=== PATIENT | female | born 1985 | race American Indian/Alaskan Native ===

== ENCOUNTER 2016-07-03 19:45 | Emergency (ER) | payer MEDICAID ==
[2016-07-03 20:12] VITALS: BP 128/78
[2016-07-03 21:31] LABS: Basophils % (Auto) 0.9 % (0.0-1.8); Eosinophils % (Auto) 7.9 % (0.0-4.3); Hematocrit 38.5 % (30.3-42.9); Hemoglobin 12.6 gm/dl (10.1-14.3); Mean Corpuscular HGB Conc 33 % (30-34); Mean Corpuscular Hemoglobin 27 pg (28-32); Mean Corpuscular Volume 83 fl (79-97); Platelet Count 226 K/mm3 (140-440); Red Blood Count 4.61 M/mm3 (3.65-5.03); Red Cell Distribution Width 16.2 % (13.2-15.2); White Blood Count 7.5 K/mm3 (4.5-11.0)
[2016-07-03 21:44] LABS: Anion Gap 19 mmol/L; BUN/Creatinine Ratio 16.66; Blood Urea Nitrogen 15 mg/dL (7-17); Calcium 8.9 mg/dL (8.4-10.2); Carbon Dioxide 23 mmol/L (22-30); Chloride 98.6 mmol/L (98-107); Glucose 91 mg/dL (65-100); Sodium 137 mmol/L (137-145)
--- NOTE | 2016-07-05 15:58 | ED Elopement Review ---
ED Pt Elopement review - Results review Lab results: Laboratory Tests 07/03/16 07/03/16 20:58 20:58 WBC 7.5 RBC 4.61 Hgb 12.6 Hct 38.5 MCV 83 MCH 27 L MCHC 33 RDW 16.2 H Plt Count 226 Lymph % (Auto) 24.9 Weld % (Auto) 11.1 H Eos % (Auto) 7.9 H Baso % (Auto) 0.9 Lymph # 1.9 Weld # 0.8 Eos # 0.6 H Baso # 0.1 Seg Neutrophils % 55.2 Seg Neutrophils # 4.1 Sodium 137 Potassium 4.0 Chloride 98.6 Carbon Dioxide 23 Anion Gap 19 BUN 15 Creatinine 0.9 Estimated GFR > 60 BUN/Creatinine Ratio 16.66 Glucose 91 Calcium 8.9 Troponin T < 0.010 - Call Back decision Pt Call Back Decision: No action required
== END 2016-07-03 22:06 | disposition left against medical advice (07) ==
LOC: ED 19:45
DX: R07.9 Chest pain, unspecified (principal); Z53.21 Procedure and treatment not carried out due to patient leaving prior to being seen by health care provider
CPT/HCPCS: 36415; 80048; 84484; 85025; 93005; 93010

== ENCOUNTER 2017-12-03 21:34 | Emergency (ER) | payer MEDICAID ==
[2017-12-03 22:47] LABS: Basophils # (Auto) 0.1 K/mm3 (0.0-0.1); Basophils % (Auto) 0.9 % (0.0-1.8); Eosinophils # (Auto) 0.3 K/mm3 (0.0-0.4); Eosinophils % (Auto) 3.7 % (0.0-4.3); Hematocrit 33.6 % (30.3-42.9); Hemoglobin 11.2 gm/dl (10.1-14.3); Lymphocytes # (Auto) 1.5 K/mm3 (1.2-5.4); Lymphocytes % (Auto) 16.9 % (13.4-35.0); Mean Corpuscular HGB Conc 33 % (30-34); Mean Corpuscular Hemoglobin 28 pg (28-32); Mean Corpuscular Volume 85 fl (79-97); Monocytes # (Auto) 0.7 K/mm3 (0.0-0.8); Monocytes % (Auto) 7.1 % (0.0-7.3); Platelet Count 254 K/mm3 (140-440); Red Blood Count 3.97 M/mm3 (3.65-5.03); Red Cell Distribution Width 17.5 % (13.2-15.2)
[2017-12-03 22:58] LABS: BUN/Creatinine Ratio 19; Blood Urea Nitrogen 15 mg/dL (7-17); Calcium 9.1 mg/dL (8.4-10.2); Hemolysis Index 3
[2017-12-03 23:07] LABS: Bilirubin,Urine NEG (Negative); Blood,Urine NEG (Negative); Color,Urine Straw (Yellow); Protein,Urine <15 mg/dL mg/dL (Negative); RBC,Urine < 1.0 /HPF (0.0-6.0); Urobilinogen,Urine < 2.0 mg/dL (<2.0); WBC,Urine < 1.0 /HPF (0.0-6.0)
--- NOTE | 2017-12-03 23:29 | XRay Report ---
FINAL REPORT PROCEDURE: XR CHEST 1V AP TECHNIQUE: Chest radiograph anteroposterior view. CPT 74550 HISTORY: [facility] Respiratory Infection COMPARISON: No prior studies are available for comparison. FINDINGS: Heart: Upper normal size.. Mediastinum/Vessels: Normal. Lungs/Pleural space: Clear.. Bony thorax: No acute osseous abnormality. Life support devices: None. IMPRESSION: Heart size upper normal. No acute abnormalities are suspected..
[2017-12-04 03:19] VITALS: BP 125/77
[2017-12-04] MEDS ORDERED: DUONEB *Not for PRN Use IH ONE (04:40)
[2017-12-04] MEDS ORDERED: DELTASONE PO ONE (04:40)
--- NOTE | 2017-12-04 04:43 | Emergency Department Report ---
ED Asthma HPI - General Chief Complaint: Upper Respiratory Infection Stated Complaint: ASTHMA Time Seen by Provider: 12/04/17 03:34 Source: patient Mode of arrival: Ambulatory Limitations: No Limitations - History of Present Illness MD Complaint: "asthma attack", shortness of breath, wheezing -: Gradual, days(s) (several) Asthma History: history of prior ED visit Severity: mild Context: allergen exposure, smoke exposure, other (heat ) Associated Symptoms: productive cough, chest pain Treatments Prior to Arrival: inhaled bronchodilator - Related Data Previous Rx's Medication Instructions Recorded Last Taken Type Vits96/Iron Fum/Folic 1 each PO QDAY #30 tablet 03/08/14 Unknown Rx [ Tablet] Gentamicin 0.3% Ophth Oint 1 applicatio OD Q4H #1 tube 08/16/15 Unknown Rx Ibuprofen [Motrin 600 MG tab] 600 mg PO Q8H PRN #30 tablet 08/16/15 Unknown Rx Ibuprofen [Motrin] 800 mg PO Q8HR PRN #20 tablet 03/12/16 Unknown Rx Prednisone [predniSONE 10 mg 10 mg PO .TAPER #1 tab.ds.pk 12/04/17 Unknown Rx (6-Day Pack, 21 Tabs)] Allergies Allergy/AdvReac Type Severity Reaction Status Date / Time No Known Allergies Allergy Verified 08/16/15 12:38 ED Review of Systems ROS: Stated complaint: ASTHMA Other details as noted in HPI Comment: All other systems reviewed and negative Constitutional: denies: fever, malaise Respiratory: cough Cardiovascular: chest pain ED Past Medical Hx - Past Medical History Hx Asthma: Yes - Surgical History Additional Surgical History: tubal ligation - Social History Smoking Status: Current Every Day Smoker Substance Use Type: None - Medications Home Medications: Home Medications Medication Instructions Recorded Confirmed Last Taken Type Vits96/Iron Fum/Folic 1 each PO QDAY #30 tablet 03/08/14 Unknown Rx [ Tablet] Gentamicin 0.3% Ophth Oint 1 applicatio OD Q4H #1 tube 08/16/15 Unknown Rx Ibuprofen [Motrin 600 MG tab] 600 mg PO Q8H PRN #30 tablet 08/16/15 Unknown Rx Ibuprofen [Motrin] 800 mg PO Q8HR PRN #20 tablet 03/12/16 Unknown Rx Prednisone [predniSONE 10 mg 10 mg PO .TAPER #1 tab.ds.pk 12/04/17 Unknown Rx (6-Day Pack, 21 Tabs)] ED Physical Exam - General Limitations: No Limitations General appearance: alert, in no apparent distress, other (appears comfortable NAD) - Head Head exam: Present: atraumatic, normocephalic - Eye Eye exam: Present: normal appearance - ENT ENT exam: Present: mucous membranes moist - Neck Neck exam: Present: normal inspection. Absent: tenderness, meningismus - Respiratory Respiratory exam: Present: normal lung sounds bilaterally. Absent: respiratory distress, wheezes, rales, rhonchi - Cardiovascular Cardiovascular Exam: Present: regular rate, normal rhythm, normal heart sounds. Absent: systolic murmur, diastolic murmur, rubs, gallop - GI/Abdominal GI/Abdominal exam: Present: soft, normal bowel sounds. Absent: distended, tenderness, guarding, rebound - Extremities Exam Extremities exam: Present: normal inspection - Back Exam Back exam: Present: normal inspection - Neurological Exam Neurological exam: Present: alert, oriented X3 - Psychiatric Psychiatric exam: Present: normal affect, normal mood - Skin Skin exam: Present: warm, dry, intact, normal color. Absent: rash ED Course Vital Signs 12/03/17 12/04/17 12/04/17 22:16 01:36 01:46 Temperature 98.4 F 97.8 F Pulse Rate 89 80 Respiratory 20 18 Rate Blood Pressure 124/60 Blood Pressure 127/70 [Left] O2 Sat by Pulse 99 97 100 Oximetry 12/04/17 12/04/17 12/04/17 02:00 02:30 03:00 Temperature Pulse Rate Respiratory Rate Blood Pressure 127/70 125/75 125/77 Blood Pressure [Left] O2 Sat by Pulse 98 98 100 Oximetry 12/04/17 12/04/17 03:30 04:00 Temperature Pulse Rate Respiratory Rate Blood Pressure 104/49 125/77 Blood Pressure [Left] O2 Sat by Pulse 99 100 Oximetry ED Medical Decision Making - Lab Data Result diagrams: 12/03/17 22:27 12/03/17 22:27 - Radiology Data Radiology results: report reviewed no acute process - Medical Decision Making mild asthma exacerbation, clear breath sounds prior to treatment in ED rx: pred pack Patient has f/u with PCP on Saturday Critical care attestation.: If time is entered above; I have spent that time in minutes in the direct care of this critically ill patient, excluding procedure time. ED Disposition Clinical Impression: Asthma exacerbation Disposition: DC-01 TO HOME OR SELFCARE Is pt being admited?: No Does the pt Need Aspirin: No Condition: Stable Instructions: Asthma (ED) Prescriptions: Prednisone [predniSONE 10 mg (6-Day Pack, 21 Tabs)] 10 mg PO .TAPER #1 tab.ds.pk Referrals: DEVI ZURITA FNP [Primary Care Provider] - 3-5 Days Time of Disposition: 04:43
== END 2017-12-04 05:29 | disposition home or self-care (01) ==
LOC: ED 21:34
DX: J45.901 Unspecified asthma with (acute) exacerbation (principal); F17.200 Nicotine dependence, unspecified, uncomplicated; Z90.49 Acquired absence of other specified parts of digestive tract
CPT/HCPCS: 36415; 71045; 80048; 81001; 85025; 99284; J7512

== ENCOUNTER 2018-08-04 22:55 | Emergency (ER) | payer MEDICAID ==
[2018-08-04 23:01] VITALS: BP 128/85
[2018-08-04 23:24] LABS: Hematocrit 33.7 % (30.3-42.9); Hemoglobin 11.3 gm/dl (10.1-14.3); Mean Corpuscular HGB Conc 34 % (30-34); Mean Corpuscular Volume 80 fl (79-97); Platelet Count 262 K/mm3 (140-440); Red Blood Count 4.22 M/mm3 (3.65-5.03); Red Cell Distribution Width 17.4 % (13.2-15.2)
[2018-08-04 23:46] LABS: Bilirubin,Urine NEG (Negative); Blood,Urine NEG (Negative); Color,Urine Yellow (Yellow); Protein,Urine <15 mg/dL mg/dL (Negative); Urobilinogen,Urine < 2.0 mg/dL (<2.0)
[2018-08-04 23:47] LABS: HCG Qualitative,Urine Negative (Negative)
[2018-08-04 23:47] LABS: Alanine Aminotransferase 27 units/L (7-56); Albumin 4.2 g/dL (3.9-5); BUN/Creatinine Ratio 16; Blood Urea Nitrogen 13 mg/dL (7-17); Calcium 9.1 mg/dL (8.4-10.2); Hemolysis Index 15
[2018-08-05] MEDS ORDERED: NORCO 5/325 ONE (00:03)
[2018-08-05] MEDS ORDERED: NORCO 5/325 PO ONE (00:03)
[2018-08-05] MEDS ORDERED: IBUPROFEN PO ONE ×2 (00:03)
--- NOTE | 2018-08-05 01:32 | Emergency Department Report ---
ED Abdominal Pain HPI - General Chief Complaint: Abdominal Pain Stated Complaint: ABDOMINAL PAIN Source: patient Mode of arrival: Ambulatory Limitations: No Limitations - History of Present Illness Initial Comments: This is a 33-year-old -[place] female presents with abdominal pain for 3 days. Patient reports pain increased tonight. States pain is an umbilical region. Patient states pain is intensified with cough or during urination. When pain presents she feel a ball in umbilical region. Currently reports pain is 9 out of 10 on pain scale and burning sensation. Denies chest pain, shortness of breath, urinary frequency, urgency, dysuria, vaginal discharge, n ausea or vomiting, or diarrhea. MD Complaint: abdominal pain Onset/Timin -: days(s) Location: periumbilical Radiation: none Migration to: no migration Severity: severe Severity scale (0 -10): 10 Quality: burning Consistency: intermittent Improves With: nothing Worsens With: other (cough, urination, and defecation) Associated Symptoms: denies other symptoms - Related Data LMP Date: 07/22/18 Previous Rx's Medication Instructions Recorded Last Taken Type Vits96/Iron Fum/Folic 1 each PO QDAY #30 tablet 03/08/14 Unknown Rx [ Tablet] Gentamicin 0.3% Ophth Oint 1 applicatio OD Q4H #1 tube 08/16/15 Unknown Rx Ibuprofen [Motrin 600 MG tab] 600 mg PO Q8H PRN #30 tablet 08/16/15 Unknown Rx Ibuprofen [Motrin] 800 mg PO Q8HR PRN #20 tablet 03/12/16 Unknown Rx Prednisone [predniSONE 10 mg 10 mg PO .TAPER #1 tab.ds.pk 12/04/17 Unknown Rx (6-Day Pack, 21 Tabs)] Pantoprazole [Protonix] 40 mg PO QDAY #30 tablet 08/05/18 Unknown Rx traMADol [Ultram 50 MG tab] 50 mg PO Q6HR PRN #12 tablet 08/05/18 Unknown Rx Allergies Allergy/AdvReac Type Severity Reaction Status Date / Time No Known Allergies Allergy Verified 08/16/15 12:38 ED Review of Systems ROS: Stated complaint: ABDOMINAL PAIN Other details as noted in HPI Constitutional: denies: chills, fever Respiratory: denies: cough, shortness of breath, wheezing Cardiovascular: denies: chest pain, palpitations Gastrointestinal: abdominal pain. denies: nausea, diarrhea Genitourinary: denies: urgency, dysuria, discharge Skin: denies: rash, lesions Neurological: denies: headache, weakness, paresthesias Psychiatric: denies: anxiety, depression ED Past Medical Hx - Past Medical History Previous Medical History?: Yes Hx Asthma: Yes - Surgical History Past Surgical History?: Yes Additional Surgical History: tubal ligation - Social History Smoking Status: Former Smoker Substance Use Type: None - Medications Home Medications: Home Medications Medication Instructions Recorded Confirmed Last Taken Type Vits96/Iron Fum/Folic 1 each PO QDAY #30 tablet 03/08/14 Unknown Rx [ Tablet] Gentamicin 0.3% Ophth Oint 1 applicatio OD Q4H #1 tube 08/16/15 Unknown Rx Ibuprofen [Motrin 600 MG tab] 600 mg PO Q8H PRN #30 tablet 08/16/15 Unknown Rx Ibuprofen [Motrin] 800 mg PO Q8HR PRN #20 tablet 03/12/16 Unknown Rx Prednisone [predniSONE 10 mg 10 mg PO .TAPER #1 tab.ds.pk 12/04/17 Unknown Rx (6-Day Pack, 21 Tabs)] Pantoprazole [Protonix] 40 mg PO QDAY #30 tablet 08/05/18 Unknown Rx traMADol [Ultram 50 MG tab] 50 mg PO Q6HR PRN #12 tablet 08/05/18 Unknown Rx ED Physical Exam - General Limitations: No Limitations General appearance: alert, in no apparent distress, obese - Respiratory Respiratory exam: Present: normal lung sounds bilaterally. Absent: respiratory distress - Cardiovascular Cardiovascular Exam: Present: regular rate, normal rhythm. Absent: systolic murmur, diastolic murmur, rubs, gallop - GI/Abdominal GI/Abdominal exam: Present: soft, tenderness (left upper quadrant and left lower quadrant tenderness), normal bowel sounds. Absent: distended, guarding, rebound, rigid, organomegaly, mass, bruit, pulsatile mass - Back Exam Back exam: Absent: CVA tenderness (R), CVA tenderness (L) - Neurological Exam Neurological exam: Present: alert, oriented X3, normal gait - Psychiatric Psychiatric exam: Present: normal affect, normal mood - Skin Skin exam: Present: warm, dry, intact, normal color. Absent: rash ED Course Vital Signs 08/04/18 08/05/18 08/05/18 22:59 01:37 03:07 Temperature 97.9 F Pulse Rate 108 H 85 Respiratory 18 20 15 Rate Blood Pressure 128/85 O2 Sat by Pulse 98 98 100 Oximetry ED Medical Decision Making - Lab Data Result diagrams: 08/04/18 23:03 08/04/18 23:03 Lab Results 08/04/18 08/04/18 08/04/18 Range/Units 23:03 23:03 23:14 WBC 7.3 (4.5-11.0) K/mm3 RBC 4.22 (3.65-5.03) M/mm3 Hgb 11.3 (10.1-14.3) gm/dl Hct 33.7 (30.3-42.9) % MCV 80 (79-97) fl MCH 27 L (28-32) pg MCHC 34 (30-34) % RDW 17.4 H (13.2-15.2) % Plt Count 262 (140-440) K/mm3 Eos % (Auto) [place] Sodium 138 (137-145) mmol/L Potassium 4.0 (3.6-5.0) mmol/L Chloride 102.6 (98-107) mmol/L Carbon Dioxide 21 L (22-30) mmol/L Anion Gap 18 mmol/L BUN 13 (7-17) mg/dL Creatinine 0.8 (0.7-1.2) mg/dL Estimated GFR > 60 ml/min BUN/Creatinine Ratio 16 % Glucose 121 H (65-100) mg/dL Calcium 9.1 (8.4-10.2) mg/dL Total Bilirubin < 0.20 (0.1-1.2) mg/dL AST 31 (5-40) units/L ALT 27 (7-56) units/L Alkaline Phosphatase 47 (35-129) units/L Total Protein 6.6 (6.3-8.2) g/dL Albumin 4.2 (3.9-5) g/dL Albumin/Globulin Ratio 1.8 % Urine Color Yellow (Yellow) Urine Turbidity Clear (Clear) Urine pH 6.0 (5.0-7.0) Ur Specific [place] 1.021 (1.003-1.030) Urine Protein <15 mg/dl (Negative) mg/dL Urine Glucose (UA) Neg (Negative) mg/dL Urine Ketones Neg (Negative) mg/dL Urine Blood Neg (Negative) Urine Nitrite Neg (Negative) Urine Bilirubin Neg (Negative) Urine Urobilinogen < 2.0 (<2.0) mg/dL Ur Leukocyte Esterase Neg (Negative) Urine WBC (Auto) 1.0 (0.0-6.0) /HPF Urine RBC (Auto) 2.0 (0.0-6.0) /HPF U Epithel Cells (Auto) 4.0 (0-13.0) /HPF Urine HCG, Qual Negative (Negative) - Radiology Data Radiology results: report reviewed PROCEDURE: CT ABDOMEN PELVIS WO CON TECHNIQUE: Routine axial imaging was obtained of the abdomen and pelvis without oral or IV contrast. Sagittal and coronal reconstructions were reviewed. HISTORY: LUQ LLQ tenderness COMPARISONS: None FINDINGS: The lung bases are clear. Pleural fluid is not seen. The liver, gallbladder, biliary tree, pancreas, spleen, and adrenal glands appear normal. The kidneys show no evidence of stones or hydronephrosis. The bowel loops are normal in caliber and course. There is no evidence of free fluid or adenopathy. The appendix is not enlarged. In the pelvis the uterus and bladder appear normal. The skeletal structures do not show any acute changes. IMPRESSION: No acute process in the abdomen and pelvis.. - Medical Decision Making This is a 33 y.o. female that presents with abdominal pain to the umbilical region for 3 days. Patient is stable and was examined by me. Vitals stable. Obtained CMP, CBC, & UA. All labs are unremarkable. CT of abdomen and pelvis is dictated by radiologist and report reviewed by myself. No acute process in the abdomen and pelvis. Plan to start trial of Protonix to r/o GERD. Start tramadol for pain. Referral to gastroenterology's for further evaluation. Discussed plan with patient and agreed to plan. No further questions noted by the patient. Discharged home in stable condition. Follow up with PCP if medical clinic. Critical care attestation.: If time is entered above; I have spent that time in minutes in the direct care of this critically ill patient, excluding procedure time. ED Disposition Clinical Impression: Abdominal pain Qualifiers: Abdominal location: periumbilical Qualified Code(s): R10.33 - Periumbilical pain GERD (gastroesophageal reflux disease) Qualifiers: Esophagitis presence: with esophagitis Qualified Code(s): K21.0 - Gastro- esophageal reflux disease with esophagitis Disposition: DC-01 TO HOME OR SELFCARE Is pt being admited?: No Does the pt Need Aspirin: No Condition: Stable Instructions: Gastroesophageal Reflux Disease (ED), Abdominal Pain (ED) Additional Instructions: Follow-up with your primary care provider as discussed. There is a referral to gastroenterology for further workup if symptoms do not improve as discussed. Return to the emergency room if pain increases, nausea vomiting, fever, chest pain, shortness of breath. Prescriptions: Pantoprazole [Protonix] 40 mg PO QDAY #30 tablet traMADol [Ultram 50 MG tab] 50 mg PO Q6HR PRN #12 tablet PRN Reason: Pain Referrals: DEVI ZURITA FNP [Primary Care Provider] - 3-5 Days [facility] [Provider Group] - 3-5 Days Forms: Accompanied Note, Work/School Release Form(ED) Time of Disposition: 02:54
--- NOTE | 2018-08-05 02:21 | Cat Scan Report ---
PROCEDURE: CT ABDOMEN PELVIS WO CON TECHNIQUE: Routine axial imaging was obtained of the abdomen and pelvis without oral or IV contrast. Sagittal and coronal reconstructions were reviewed. HISTORY: LUQ LLQ tenderness COMPARISONS: None FINDINGS: The lung bases are clear. Pleural fluid is not seen. The liver, gallbladder, biliary tree, pancreas, spleen, and adrenal glands appear normal. The kidneys show no evidence of stones or hydronephrosis. The bowel loops are normal in caliber and course. Ther e is no evidence of free fluid or adenopathy. The appendix is not enlarged. In the pelvis the uterus and bladder appear normal. The skeletal structures do not show any acute changes. IMPRESSION: No acute process in the abdomen and pelvis.. This document is electronically signed by Ezequiel Leon MD., August 05 2018 02:18:26 AM ET
[2018-08-05] MEDS ORDERED: ULTRAM PO ONE (02:52)
[2018-08-05] MEDS ORDERED: PROTONIX PO ONE (02:52)
[2018-08-05 04:37] LABS: Basophils % (Manual) 0 % (0.0-1.8); Total Cells Counted 100
[2018-08-05 04:38] LABS: RBC Morphology Normal
== END 2018-08-05 03:07 | disposition home or self-care (01) ==
LOC: ED 22:55
DX: R10.33 Periumbilical pain (principal); K21.9 Gastro-esophageal reflux disease without esophagitis; J45.909 Unspecified asthma, uncomplicated; Z87.891 Personal history of nicotine dependence; Z98.51 Tubal ligation status
CPT/HCPCS: 36415; 74176; 80053; 81001; 81025; 85007; 85025; 99284